=== PATIENT | female | born 1980 | race Caucasian/White ===

== ENCOUNTER 2016-08-20 16:08 | Emergency (ER) | payer OTHER ==
[~2016-08-20] VITALS: Ht 160 cm; Wt 94.0 kg
[2016-08-20] MEDS ORDERED: PRENATAL (17:38)
[2016-08-20] MEDS ORDERED: RANI150T8 PO (17:38)
[2016-08-20 18:22] LABS: BLOOD UREA NITROGEN 12 mg/dL (7-18)
[2016-08-20 18:26] LABS: ASPARTATE AMINO TRANSFERASE < 3 U/L (15-37)
[2016-08-20 19:36] VITALS: BP 116/70
== END 2016-08-20 19:38 | disposition home or self-care (01) ==
LOC: ED 18:10
DX: O20.0 Threatened abortion (principal); O26.891 Other specified pregnancy related conditions, first trimester; K29.00 Acute gastritis without bleeding
CPT/HCPCS: 36415; 76700; 76801; 80053; 81001; 83690; 84702; 85025; 87086

== ENCOUNTER 2017-02-28 10:20 | Outpatient (CLI) | payer OTHER ==
[~2017-02-28 10:20] MED LIST: INSU100V5 SQ-INSULIN; INSULIN HUMULIN SQ; INSULIN REGULAR SQ; NPH,100V SQ; PANT40TA5 PO; PRENATAL; RANI150T8 PO
[2017-02-28 10:54] VITALS: BP 114/63
== END 2017-02-28 11:33 | disposition home or self-care (01) ==
LOC: LDOP 10:20
PROVIDERS: ATTEND Obstetrics & Gynecology
DX: O09.523 Supervision of elderly multigravida, third trimester (principal); O24.414 Gestational diabetes mellitus in pregnancy, insulin controlled; Z3A.33 33 weeks gestation of pregnancy
CPT/HCPCS: 59025; 99211; G0463

== ENCOUNTER 2017-03-02 17:48 | Observation (INO) | payer OTHER ==
[~2017-03-02] VITALS: Ht 160 cm; Wt 109.0 kg
[2017-03-02 18:00] VITALS: BP 118/76
[2017-03-02] MEDS ORDERED: ONDANSETRON 2MG/ML, 2ML IVPush PRN (19:00)
[2017-03-02] MEDS ORDERED: D5%-LACTATED RINGERS 1,000 ML IV SCH (19:00)
[2017-03-02] MEDS ORDERED: LOPERAMIDE 1 MG/5 ML, 10ML UDC PO SCH (19:00)
[2017-03-02] MEDS ORDERED: PLEASE ENTER HEIGHT AND WEIGHT MC SCH (19:00)
[2017-03-02] MEDS ORDERED: ONDANSETRON 2MG/ML, 2ML ONE (19:17)
[2017-03-02 19:23] LABS: HEMOGLOBIN 10.2 g/dL (11.7-16.4); WHITE BLOOD COUNT 5.4 x10^3/uL (3.4-10)
[2017-03-02 19:32] LABS: ASPARTATE AMINO TRANSFERASE 18 U/L (15-37); BLOOD UREA NITROGEN 9 mg/dL (7-18)
[2017-03-02 20:54] LABS: RAPID INFLUENZA A Negative (Negative); RAPID INFLUENZA B Negative (Negative)
[2017-03-02] MEDS ORDERED: SODIUM CHLORIDE 0.9% 1,000 ML IV SCH (21:00)
[2017-03-02] MEDS: REGULAR INSULIN 62.5 UNITS in SODIUM CHLORIDE 0.9% 249.375 ML IV PRN ×2 (21:38→23:13)
[2017-03-02] MEDS ORDERED: D5%-0.9% NACL 1,000 ML IV SCH (23:00)
[2017-03-03] MEDS: REGULAR INSULIN 62.5 UNITS in SODIUM CHLORIDE 0.9% 249.375 ML IV PRN ×3 (00:15→02:12)
[2017-03-03 06:14] LABS: ASPARTATE AMINO TRANSFERASE 15 U/L (15-37); BLOOD UREA NITROGEN 6 mg/dL (7-18)
[2017-03-03] MEDS ORDERED: INSULIN ASPART 100 UNITS/ML, PEN SQ-INSULIN ONE (07:30)
[2017-03-03] MEDS ORDERED: INSULIN NPH HUMAN 100 UNIT/ML, 3ML VIAL SQ-INSULIN ONE (08:00)
[2017-03-03] MEDS ORDERED: SODIUM CHLORIDE FLUSH 3ML SYRINGE IVF SCH (09:00)
== END 2017-03-03 13:35 | disposition home or self-care (01) ==
LOC: LDOP 17:48 → LDIP 20:41
PROVIDERS: ADMIT Obstetrics & Gynecology; ATTEND Obstetrics & Gynecology
DX: O09.523 Supervision of elderly multigravida, third trimester (principal); O26.893 Other specified pregnancy related conditions, third trimester; O24.313 Unspecified pre-existing diabetes mellitus in pregnancy, third trimester; R19.7 Diarrhea, unspecified; E86.0 Dehydration; Z3A.33 33 weeks gestation of pregnancy
CPT/HCPCS: 36415; 59025; 80053; 81001; 81003; 82731; 82962; 83036; 85025; 87400; 96360; 96361; 96365; 96366; 96372; 96375; G0378; J1815; J2405; J7030; J7050; J7042; J7121

== ENCOUNTER 2017-03-22 21:23 | Emergency (ER) | payer OTHER ==
[~2017-03-22] VITALS: Ht 160 cm; Wt 115.0 kg
[2017-03-22] MEDS ORDERED: IBUPROFEN 200 MG TABLET PO ONE (22:00)
[2017-03-22] MEDS ORDERED: METOCLOPRAMIDE 5 MG/ML, 2ML IVPush ONE (22:00)
[2017-03-22] MEDS ORDERED: PHENAZOPYRIDINE 200 MG TABLET PO ONE (22:00)
[2017-03-22] MEDS ORDERED: SODIUM CHLORIDE FLUSH 10ML SYR IVF ONE (22:00)
[2017-03-22] MEDS ORDERED: METOCLOPRAMIDE 5 MG/ML, 2ML ONE (22:11)
[2017-03-22 22:16] LABS: HEMATOCRIT 32.4 % (34.6-47.8); HEMOGLOBIN 10.7 g/dL (11.7-16.4); WHITE BLOOD COUNT 7.5 x10^3/uL (3.4-10)
[2017-03-22 22:25] LABS: ASPARTATE AMINO TRANSFERASE 8 U/L (15-37); BLOOD UREA NITROGEN 18 mg/dL (7-18)
[2017-03-23 02:12] VITALS: BP 131/88
== END 2017-03-23 03:37 | disposition home or self-care (01) ==
LOC: ED 23:58
DX: O26.893 Other specified pregnancy related conditions, third trimester (principal); O99.353 Diseases of the nervous system complicating pregnancy, third trimester; Z3A.37 37 weeks gestation of pregnancy; O24.419 Gestational diabetes mellitus in pregnancy, unspecified control; Z87.891 Personal history of nicotine dependence
CPT/HCPCS: 36415; 70551; 80053; 81003; 85025; 96374; 99285; J2765; J7512

== ENCOUNTER 2017-04-03 09:30 | Inpatient (IN) | payer OTHER ==
[~2017-04-03] VITALS: Ht 160 cm; Wt 114.5 kg
[~2017-04-03 09:30] MED LIST changes: +ASPI-515 PO; +PRED10TA14 PO; +PREN1TAB60 PO
[2017-04-03] MEDS ORDERED: OXYTOCIN 30U/ 0.9% NaCL 500ML 500 ML IV SCH (10:14)
[2017-04-03] MEDS ORDERED: LACTATED RINGERS 1,000 ML IV SCH ×3 (10:14→12:26)
[2017-04-03 10:24] VITALS: BP 139/80
[2017-04-03] MEDS ORDERED: SODIUM CITRATE/CITRIC ACID 30 ML UDC PO ONE (10:30)
[2017-04-03] MEDS ORDERED: LACTATED RINGERS 1,000 ML IVBOLUS ONE (10:30)
[2017-04-03] MEDS ORDERED: METOCLOPRAMIDE 5 MG/ML, 2ML IV ONE (10:30)
[2017-04-03] MEDS ORDERED: SODIUM CITRATE/CITRIC ACID 30 ML UDC ONE (10:53)
[2017-04-03] MEDS ORDERED: METOCLOPRAMIDE 5 MG/ML, 2ML ONE (10:53)
[2017-04-03] MEDS ORDERED: OXYTOCIN 30U/ 0.9% NaCL 500ML 500 ML ONE (10:53)
[2017-04-03] MEDS ORDERED: NEWBORN KIT ONE (10:53)
[2017-04-03] MEDS ORDERED: INSU100I11 SQ (10:56)
[2017-04-03] MEDS ORDERED: PLEASE ENTER HEIGHT AND WEIGHT MC SCH (11:00)
[2017-04-03] MEDS ORDERED: FENTANYL PF 100 MCG/2ML ONE (11:09)
[2017-04-03] MEDS ORDERED: CEFAZOLIN 1,000 MG ONE (11:09)
[2017-04-03] MEDS ORDERED: ONDANSETRON 2MG/ML, 2ML ONE (11:09)
[2017-04-03] MEDS ORDERED: OXYTOCIN 10 UNITS/ML, 1ML ONE (11:09)
[2017-04-03] MEDS ORDERED: HYDROmorphone 2 MG/ML, 1ML ONE (11:09)
[2017-04-03 11:18] LABS: BASOPHILS # (AUTO) 0.02 x10^3/uL (0-0.1); BASOPHILS % (AUTO) 0 % (0-1); EOSINOPHILS # (AUTO) 0.06 x10^3/uL (0-0.4); EOSINOPHILS % (AUTO) 0 % (1-7); LYMPHOCYTES # (AUTO) 2.11 x10^3/uL (1-3.4); LYMPHOCYTES % (AUTO) 17 % (22-44); MD NO; MEAN CORPUSCULAR HEMOGLOBIN 28.2 pg (27.0-34.8); MEAN CORPUSCULAR HGB CONC 32.9 g/dL (32.4-35.8); MEAN CORPUSCULAR VOLUME 85.8 fL (80-100); MEAN PLATELET VOLUME 8.2 fL (7.4-10.4); MONOCYTES # (AUTO) 0.61 x10^3/uL (0.2-0.8); MONOCYTES % (AUTO) 5 % (2-9); NEUTROPHILS # (AUTO) 9.75 x10^3/uL (1.8-6.8); NEUTROPHILS % (AUTO) 78 % (42-75); PLATELET COUNT 232 x10^3/uL (130-400); RED BLOOD COUNT 3.91 x10^6/uL (3.82-5.3); RED CELL DISTRIBUTION WIDTH 16.4 % (9.6-15.2)
[2017-04-03] MEDS: OXYTOCIN 30U/ 0.9% NaCL 500ML 500 ML IV SCH ×2 (12:26→22:26)
[2017-04-03] MEDS: LACTATED RINGERS 1,000 ML IV SCH ×2 (12:26→22:26)
[2017-04-03] MEDS ORDERED: morphine SULFATE 10 MG/ML, 1ML IVPush PRN (12:30)
[2017-04-03] MEDS ORDERED: OXYcodone/APAP 5/325MG TABLET PO PRN ×2 (12:30)
[2017-04-03] MEDS ORDERED: DIPH,PERTUSS(ACELL),TET VAC/PF NC IM-VACC PRN (12:30)
[2017-04-03] MEDS ORDERED: CARBOPROST TROMETHAMINE 250 MCG/ML, 1ML IM PRN (12:30)
[2017-04-03] MEDS ORDERED: ACETAMINOPHEN 325 MG TABLET PO PRN ×2 (12:30)
[2017-04-03] MEDS ORDERED: MEPERIDINE/PF 50 MG/ML IM PRN (12:30)
[2017-04-03] MEDS ORDERED: ONDANSETRON 2MG/ML, 2ML IV PRN (12:30)
[2017-04-03] MEDS ORDERED: MISOPROSTOL 200 MCG TABLET SL PRN (12:30)
[2017-04-03] MEDS ORDERED: METHYLERGONOVINE 0.2 MG/ML IM PRN (12:30)
[2017-04-03 15:50] VITALS: BP 146/93
[2017-04-03 19:30] VITALS: BP 151/92
[2017-04-03] MEDS: KETOROLAC 30 MG/1 ML IV SCH (19:37)
[2017-04-03] MEDS: DOCUSATE 100 MG CAPSULE PO PRN (19:37)
[2017-04-03] MEDS ORDERED: CEFAZOLIN PMX 2GM/50ML 50 ML IV SCH (21:00)
[2017-04-03] MEDS: CEFAZOLIN 2,000 MG in DEXTROSE 5% 50 ML IVPB SCH (21:28)
[2017-04-03 21:42] LABS: BASOPHILS # (AUTO) 0.05 x10^3/uL (0-0.1); BASOPHILS % (AUTO) 1 % (0-1); EOSINOPHILS # (AUTO) 0.08 x10^3/uL (0-0.4); EOSINOPHILS % (AUTO) 1 % (1-7); LYMPHOCYTES # (AUTO) 2.21 x10^3/uL (1-3.4); LYMPHOCYTES % (AUTO) 24 % (22-44); MD NO; MEAN CORPUSCULAR HEMOGLOBIN 28.4 pg (27.0-34.8); MEAN CORPUSCULAR HGB CONC 33.1 g/dL (32.4-35.8); MEAN CORPUSCULAR VOLUME 85.6 fL (80-100); MEAN PLATELET VOLUME 8.2 fL (7.4-10.4); MONOCYTES # (AUTO) 0.44 x10^3/uL (0.2-0.8); MONOCYTES % (AUTO) 5 % (2-9); NEUTROPHILS # (AUTO) 6.59 x10^3/uL (1.8-6.8); NEUTROPHILS % (AUTO) 70 % (42-75); PLATELET COUNT 211 x10^3/uL (130-400); RED BLOOD COUNT 3.38 x10^6/uL (3.82-5.3); RED CELL DISTRIBUTION WIDTH 16.1 % (9.6-15.2)
[2017-04-03 23:45] VITALS: BP 143/90
[2017-04-04] MEDS: HYDROcodone/APAP 5/325 TABLET PO PRN ×6 (00:57→23:56)
[2017-04-04] MEDS: KETOROLAC 30 MG/1 ML IV SCH ×4 (00:57→19:58)
[2017-04-04] MEDS: LACTATED RINGERS 1,000 ML IV SCH ×2 (00:57→20:15)
[2017-04-04 04:00] VITALS: BP 144/90
[2017-04-04] MEDS: CEFAZOLIN 2,000 MG in DEXTROSE 5% 50 ML IVPB SCH (04:47)
[2017-04-04 07:29] VITALS: BP 143/94
[2017-04-04] MEDS ORDERED: PRENATAL VIT/IRON/FA 1 EACH TABLET ONE (07:30)
[2017-04-04] MEDS: PRENATAL VIT/IRON/FA 1 EACH TABLET PO SCH (07:34)
[2017-04-04] MEDS: DOCUSATE 100 MG CAPSULE PO PRN ×2 (07:34→19:58)
[2017-04-04] MEDS: OXYTOCIN 30U/ 0.9% NaCL 500ML 500 ML IV SCH ×2 (08:26→20:15)
[2017-04-04 20:15] VITALS: BP 142/89
[2017-04-04 23:45] VITALS: BP 144/91
[2017-04-05] VITALS (7 sets, daily range): BP systolic 136–160; BP diastolic 76–104
[2017-04-05] MEDS: KETOROLAC 30 MG/1 ML IV SCH ×3 (01:56→14:04)
[2017-04-05] MEDS: LACTATED RINGERS 1,000 ML IV SCH ×2 (04:26→14:26)
[2017-04-05] MEDS: OXYTOCIN 30U/ 0.9% NaCL 500ML 500 ML IV SCH ×2 (04:26→14:26)
[2017-04-05] MEDS: HYDROcodone/APAP 5/325 TABLET PO PRN ×5 (05:40→22:25)
[2017-04-05] MEDS: DOCUSATE 100 MG CAPSULE PO PRN ×2 (08:07→22:25)
[2017-04-05] MEDS: PRENATAL VIT/IRON/FA 1 EACH TABLET PO SCH (08:07)
[2017-04-05] MEDS ORDERED: KETOROLAC 30 MG/1 ML ONE (13:57)
[2017-04-05 20:37] LABS: BASOPHILS # (AUTO) 0.07 x10^3/uL (0-0.1); BASOPHILS % (AUTO) 1 % (0-1); EOSINOPHILS # (AUTO) 0.09 x10^3/uL (0-0.4); EOSINOPHILS % (AUTO) 1 % (1-7); LYMPHOCYTES # (AUTO) 2.57 x10^3/uL (1-3.4); LYMPHOCYTES % (AUTO) 28 % (22-44); MD NO; MEAN CORPUSCULAR HEMOGLOBIN 28.7 pg (27.0-34.8); MEAN CORPUSCULAR HGB CONC 33.4 g/dL (32.4-35.8); MEAN CORPUSCULAR VOLUME 86.1 fL (80-100); MEAN PLATELET VOLUME 7.9 fL (7.4-10.4); MONOCYTES # (AUTO) 0.48 x10^3/uL (0.2-0.8); MONOCYTES % (AUTO) 5 % (2-9); NEUTROPHILS # (AUTO) 5.88 x10^3/uL (1.8-6.8); NEUTROPHILS % (AUTO) 65 % (42-75); PLATELET COUNT 246 x10^3/uL (130-400); RED CELL DISTRIBUTION WIDTH 16.3 % (9.6-15.2)
[2017-04-05 20:47] LABS: ALANINE AMINOTRANSFERASE 12 U/L (12-78); ALBUMIN 1.9 g/dL (3.4-5.0); ANION GAP 6 mmol/L (5-15); CALCIUM 8.1 mg/dL (8.5-10.1); CHLORIDE 108 mmol/L (98-107); CREATININE 0.77 mg/dL (0.55-1.02)
[2017-04-05 20:49] LABS: ALKALINE PHOSPHATASE 117 U/L (45-117); BILIRUBIN,TOTAL 0.1 mg/dL (0.2-1.0); TOTAL PROTEIN 5.9 g/dL (6.4-8.2)
[2017-04-06 02:21] VITALS: BP 138/85
[2017-04-06] MEDS: HYDROcodone/APAP 5/325 TABLET PO PRN ×3 (02:26→13:23)
[2017-04-06 05:10] LABS: CREATININE,URINE RANDOM 56.5 mg/dL
[2017-04-06 08:00] VITALS: BP_SYST 148; BP_SYST 152; BP_DIAS 96; BP_DIAS 97
[2017-04-06] MEDS: DOCUSATE 100 MG CAPSULE PO PRN (08:21)
[2017-04-06] MEDS: PRENATAL VIT/IRON/FA 1 EACH TABLET PO SCH (08:21)
[2017-04-06] MEDS ORDERED: HYDR-3240 PO (11:07)
[2017-04-06] MEDS ORDERED: IBUP-1222 PO (11:10)
== END 2017-04-06 15:00 | disposition home or self-care (01) | DRG 765 ==
LOC: CLISVCS 09:30 → LDIP 10:26 → 2NW 15:53
PROVIDERS: ADMIT Obstetrics & Gynecology; ATTEND Obstetrics & Gynecology
PROC: 10D00Z1 Extraction of Products of Conception, Low, Open Approach (ICD-10-PCS; principal; 2017-04-04)
DX: O34.211 Maternal care for low transverse scar from previous cesarean delivery (principal); O24.32 Unspecified pre-existing diabetes mellitus in childbirth; O99.354 Diseases of the nervous system complicating childbirth; K21.9 Gastro-esophageal reflux disease without esophagitis; O99.62 Diseases of the digestive system complicating childbirth; G51.0 Bell's palsy; Z3A.38 38 weeks gestation of pregnancy; Z79.4 Long term (current) use of insulin; Z37.0 Single live birth
CPT/HCPCS: 36415; 80053; 82570; 82803; 82947; 82962; 84156; 85025; 86850; 86900; J0690; J1170; J1885; J2405; J3010; J2590; J2765; J7120